=== PATIENT | female | born 1955 | race Caucasian/White ===

== ENCOUNTER → 2024-12-23 10:36 | Outpatient (REF) | payer OTHER, SELFPAY | LOC: HWRAD 10:36 | PROVIDERS: ATTENDING PHYSICIAN Family Medicine | DX: I65.23 Occlusion and stenosis of bilateral carotid arteries (principal) | CPT/HCPCS: 93880 ==

== ENCOUNTER → 2025-06-25 13:24 | Outpatient (REF) | payer OTHER, SELFPAY | LOC: HWWDC 13:24 | PROVIDERS: ATTENDING PHYSICIAN Family Medicine | DX: Z12.31 Encounter for screening mammogram for malignant neoplasm of breast (principal) | CPT/HCPCS: 77063; 77067 ==

== ENCOUNTER → 2025-06-28 14:59 | Outpatient (REF) | payer OTHER, SELFPAY | LOC: RAD 14:59 | DX: R06.09 Other forms of dyspnea (principal); R06.2 Wheezing; R05.3 Chronic cough; R68.89 Other general symptoms and signs | CPT/HCPCS: 71046 ==